=== PATIENT | female | born 1990 ===

== ENCOUNTER 2024-02-15 10:50 | Outpatient (CLI) | payer BC, SELFPAY ==
[2024-02-15 16:56] LABS: Abs Immature Grans 0.03 10^3/uL (0.0-0.06); Absolute Basophil Count 0.06 10^3/uL (0.0-0.2); Absolute Eosinophil Count 0.21 10^3/uL (0.0-0.7); Absolute Lymphocyte Count 2.27 10^3/uL (1.2-3.4); Absolute Neutrophil Count 4.54 10^3/uL (1.2-6.7); Basophils % 0.8; Eosinophils % 2.7; HCT 42.4 % (36.0-46.0); HGB 13.7 g/dL (11.2-15.7); Immature Grans % 0.4; Lymphocytes % 29.4; MCH 29.7 pg (27.0-33.0); MCHC 32.3 % (32.0-36.0); MCV 92 fL (80-95); MPV 10.6 fL (8.0-11.0); Monocytes % 7.8; Neutrophils % 58.9; Platelet Count 266 10^3/uL (130-400); RBC 4.61 10^6/uL (3.93-5.22); RDW 12.5 % (11.7-14.6); RDW-SD 41.8 fL; WBC 7.71 10^3/uL (4.4-10.8)
[2024-02-15 18:11] LABS: Anion Gap 12.7 mmol/L (3-11); BUN 24 mg/dL (7-18); CO2 27.3 mmol/L (21.0-32.0); CREATININE 0.8 mg/dL (0.55-1.02); Calcium 9.3 mg/dL (8.5-10.1); Chloride 103 mmol/L (98-107); Estimated GFR 100.33 (mL/min/1.73m2); FREE T4 0.97 ng/dL (0.76-1.46); Glucose 99 mg/dL (74-106); Magnesium 2.3 mg/dL (1.8-2.4); Sodium 143 mmol/L (136-145); TSH 3.42 uIU/Ml (0.36-3.74)
[2024-02-15 19:24] LABS: Ferritin 59 ng/mL (8-252)
[2024-02-16 18:05] LABS: T3,Free 3.5 pg/mL (2.8-5.3)
[2024-02-16 19:08] LABS: Folate 19.3 ng/mL (See Note); Thyroperoxidase Antibody 34 U/mL (<=60)
[2024-02-16 19:09] LABS: Thyroglobulin Antibody 202 U/mL (<=60); Vitamin B12 483 pg/mL (211-911)
[2024-02-16 19:51] LABS: Iron 49 ug/dL (50-170); Total Iron Binding Capacity 353 ug/dL (250-450); Transferrin Sat 14 % (15-50)
[2024-02-17 10:47] LABS: Insulin 7.4 uIU/mL (<29.0)
[2024-02-17 18:54] LABS: C-Peptide 2.1 ng/mL (1.1 - 4.4)
[2024-02-22 12:04] LABS: Candida albicans IgG 15.2 mcg/mL (<52.0)
== END 2024-02-15 10:51 | disposition home or self-care (01) ==
PROVIDERS: Visit Provider Naturopath
DX: R53.83 Other fatigue (principal); G47.62 Sleep related leg cramps; R19.5 Other fecal abnormalities; R14.0 Abdominal distension (gaseous); E16.2 Hypoglycemia, unspecified
CPT/HCPCS: 36415; 80048; 86001; 82607; 82728; 82746; 83525; 83540; 83550; 83735; 84439; 84443; 84481; 84681; 85025; 86376; 86800

== ENCOUNTER 2024-02-16 18:02 | Outpatient (REF) | payer BC, SELFPAY ==
[2024-02-16 17:50] LABS: C Diff PCR Negative (Negative)
[2024-02-20 22:42] LABS: Calprotectin <50.0 mcg/g
== END 2024-02-16 18:03 | disposition home or self-care (01) ==
LOC: LBN 18:02
PROVIDERS: Visit Provider Naturopath
DX: R53.83 Other fatigue (principal); G47.62 Sleep related leg cramps; R19.5 Other fecal abnormalities; R14.0 Abdominal distension (gaseous); E16.2 Hypoglycemia, unspecified
CPT/HCPCS: 87493; 83630; 83993